=== PATIENT | male | born 1990 | race African-American/Black ===

== ENCOUNTER 2020-02-17 08:15 | Emergency (ER) | payer OTHER ==
[~2020-02-17] VITALS: Ht 157.5 cm; Wt 72.6 kg
[2020-02-17] MEDS ORDERED: ELAVIL PO (08:24)
== END 2020-02-17 11:35 | disposition home or self-care (01) ==
LOC: ER 08:15
DX: R51 Headache (principal); F06.4 Anxiety disorder due to known physiological condition; Z20.828 Contact with and (suspected) exposure to other viral communicable diseases

== ENCOUNTER 2020-07-19 11:31 | Emergency (ER) | payer OTHER ==
[~2020-07-19] VITALS: Ht 157.5 cm; Wt 69.9 kg
[~2020-07-19 11:31] MED LIST: ELAVIL PO
== END 2020-07-19 14:42 | disposition home or self-care (01) ==
LOC: ER 11:31
DX: R50.9 Fever, unspecified (principal); Z03.818 Encounter for observation for suspected exposure to other biological agents ruled out

== ENCOUNTER 2020-08-20 18:54 | Emergency (ER) | payer OTHER ==
[~2020-08-20] VITALS: Ht 157.5 cm; Wt 70.3 kg
[2020-08-20] MEDS ORDERED: ZOLOFT20 MG/1 ML (19:10)
[2020-08-20] MEDS ORDERED: MEDROLPACK PO (23:54)
[2020-08-20] MEDS ORDERED: PROAIR RESPICL90 MCG IH (23:54)
== END 2020-08-20 23:45 | disposition home or self-care (01) ==
LOC: ER 18:54
DX: J45.901 Unspecified asthma with (acute) exacerbation (principal); J06.9 Acute upper respiratory infection, unspecified; Z03.818 Encounter for observation for suspected exposure to other biological agents ruled out; R06.02 Shortness of breath

== ENCOUNTER → 2020-10-02 | Outpatient (CLI) | payer OTHER ==
[~2020-10-02] MED LIST changes: +MEDROLPACK PO; +PROAIR RESPICL90 MCG IH; +ZOLOFT20 MG/1 ML
== END | disposition home or self-care (01) ==
LOC: PPH VACUNA
DX: Z23 Encounter for immunization (principal)

== ENCOUNTER 2020-10-23 09:15 | Outpatient (CLI) | payer OTHER | END 2020-10-23 09:16 | disposition home or self-care (01) | LOC: PPH VACUNA 09:15 | DX: Z23 Encounter for immunization (principal) ==